=== PATIENT | female | born 1960 | race Caucasian/White ===

== ENCOUNTER 2021-12-27 03:18 | Observation (INO) ==
[2021-12-27 04:34] LABS: ABS Eosinophils 0.1 10^3/ul (0-0.6); ABS Lymphocytes 0.7 10^3/ul (1.0-4.8); ABS Monocytes 0.7 10^3/ul (0-0.8); Eosinophil % 0.7 %; Hematocrit 40 % (35-47); Hemoglobin 13.6 g/dL (12.0-16.0); Lymphocyte % 7.8 %; Mean Corpuscular HGB Conc 34 g/dL (31-36); Mean Corpuscular Hemoglobin 30 pg (27-31); Mean Corpuscular Volume 89 fL (80-97); Mean Platelet Volume 7.5 fL (7.4-10.4); Platelet Count 244 10^3/uL (150-450); Red Blood Count 4.48 10^6 /uL (3.70-4.87); Red Cell Distribution Width 13 % (10-15); White Blood Count 9.4 10^3/uL (3.5-10.8)
[2021-12-27 04:44] LABS: Activated Partial Thrombo Time 26.2 seconds (26.0-38.0); INR 1.07 (0.86-1.15)
[2021-12-27 04:54] LABS: Albumin 4.3 g/dL (3.2-5.2); Albumin/Globulin Ratio 1.6 (1-3); C Reactive Protein 23.14 mg/L (<8.01); Calcium 9.2 mg/dL (8.6-10.3); Globulin 2.7 g/dL (2-4); Potassium 3.4 mmol/L (3.5-5.0); Total Bilirubin 0.4 mg/dL (0.2-1.0); eGFR CKD-EPI 94.5 (>60)
[2021-12-27] MEDS ORDERED: Iohexol 300 (CONTRAST) 10 ML SDV IV ONE (05:02)
[2021-12-27] MEDS ORDERED: Potassium Chlor 20 meq TAB.ER PO ONE (05:12)
[2021-12-27] MEDS ORDERED: cefTRIAXone 1 gm/50 mL NS BAG 1 GM/50 ML BAG IV ONE (06:29)
[2021-12-27] MEDS: Enoxaparin 40 MG/0.4 ML SYR SUBCUT SCH (08:44)
[2021-12-27] MEDS ORDERED: Remdesivir 100 mg Vial 200 MG in NS 0.9% 250 ml 210 ML IV ONE (09:00)
[2021-12-27] MEDS: Benzocaine/Menthol LOZ PO PRN (10:15)
[2021-12-28 07:10] LABS: INR 1.08 (0.86-1.15)
[2021-12-28 07:17] LABS: Albumin 3.9 g/dL (3.2-5.2); Albumin/Globulin Ratio 1.6 (1-3); Calcium 9.3 mg/dL (8.6-10.3); Globulin 2.4 g/dL (2-4); Potassium 3.8 mmol/L (3.5-5.0); Total Bilirubin 0.3 mg/dL (0.2-1.0); Total Protein 6.3 g/dL (6.4-8.9); eGFR CKD-EPI 100.9 (>60)
[2021-12-28] MEDS ORDERED: Remdesivir 100 mg Vial 100 MG in NS 0.9% 250 ml 230 ML IV SCH (09:00)
[2021-12-28] MEDS: Benzocaine/Menthol LOZ PO PRN (09:32)
[2021-12-28] MEDS: Enoxaparin 40 MG/0.4 ML SYR SUBCUT SCH (09:32)
[2021-12-28 13:08] VITALS: BP 122/62
== END 2021-12-28 16:12 | disposition home or self-care (01) ==
LOC: ED 03:18 → EDHOLD 03:18 → MED 10:55
PROVIDERS: ADMIT Hospitalist; ATTEND Internal Medicine